=== PATIENT | male | born 1955 | race Asian ===

== ENCOUNTER 2019-02-03 11:20 | Emergency (ER) | payer OTHER ==
[~2019-02-03] VITALS: Ht 167.6 cm; Wt 117.9 kg
[2019-02-03 11:20] VITALS: BP_SYST 125
--- NOTE | 2019-02-03 11:25 | NUR ---
Placed in room 07 . Placed on ad setter, blood pressure machine and pulse oximeter. To gown for exam. Side rails up.
--- NOTE | 2019-02-03 11:45 | NUR ---
Patient arrived via ambulance in the ED, c/o BLE pain and pressure x 1 week. Denied any syncopal episode. A & O x 4, respirations even and unlabored.
--- NOTE | 2019-02-03 11:50 | NUR ---
ECG done as ordered by MD. Patient tolerated the procedure well. Report given to .
--- NOTE | 2019-02-03 12:05 | NUR ---
Urine specimen collected, labeled, awaiting orders.
[2019-02-03 13:05] LABS: BASOPHILS % (AUTO) 0.3 % (0.0-2.0); EOSINOPHILS # (AUTO) 0.2 K/uL (0.0-0.4); HEMATOCRIT 27.6 % (36-54); HEMOGLOBIN 8.7 g/dL (14.0-18.0); LYMPHOCYTES # (AUTO) 0.7 K/uL (1.0-5.5); LYMPHOCYTES % (AUTO) 9.7 % (20.5-51.5); MEAN CORPUSCULAR HEMOGLOBIN 26 pg (27-31); MEAN CORPUSCULAR HGB CONC 32 % (32-36); MEAN CORPUSCULAR VOLUME 82 fL (79.0-98.0); MONOCYTES # (AUTO) 0.6 K/uL (0.0-1.0); MONOCYTES % (AUTO) 8.5 % (1.7-9.3); NEUTROPHILS # (AUTO) 5.8 K/uL (1.8-7.7); NEUTROPHILS % (AUTO) 78.5 % (40.0-70.0); PLATELET COUNT (AUTO) 251 K/uL (130-430); RED BLOOD CELL COUNT(AUTO) 3.36 MIL/uL (4.2-6.2); WHITE BLOOD COUNT (AUTO) 7.4 K/uL (4.8-10.8)
[2019-02-03 13:16] LABS: CALCIUM 8.6 mg/dL (8.4-11.0); CREATININE 1.27 mg/dL (0.55-1.30); POTASSIUM 4.5 mmol/L (3.5-5.1)
[2019-02-03 13:20] LABS: TOTAL BILIRUBIN 0.6 mg/dL (0.0-1.0)
[2019-02-03 13:48] LABS: CKMB RELATIVE INDEX 1.6 (0.0-2.9); CREATINE KINASE MB 6.7 ng/mL (0-3.6)
[2019-02-03 14:06] VITALS: BP_SYST 129
== END 2019-02-03 14:05 | disposition home or self-care (01) ==
LOC: SED 11:20
DX: D64.9 Anemia, unspecified (principal); E11.9 Type 2 diabetes mellitus without complications; I10 Essential (primary) hypertension; E78.00 Pure hypercholesterolemia, unspecified
CPT/HCPCS: 36415; 71045; 80053; 82550-TC; 82553-TC; 83880; 84484; 85025; 93005; 99284